=== PATIENT | male | born 2005 | race Caucasian/White ===

== ENCOUNTER 2023-01-05 20:26 | Emergency (ER) | payer MEDICAID ==
[~2023-01-05] VITALS: Ht 170.2 cm; Wt 69.0 kg
[2023-01-05] MEDS ORDERED: TOPUD PO (21:25)
[2023-01-05] MEDS ORDERED: IBUP-2028 MT (21:25)
[2023-01-05 21:30] VITALS: BP 116/78
[2023-01-05] MEDS ORDERED: ACETAMINOPHEN 325MG TABLET PO ONE (21:30)
[2023-01-05] MEDS ORDERED: IBUPROFEN 400MG TABLET PO ONE (21:30)
== END 2023-01-05 22:00 | disposition home or self-care (01) ==
LOC: ER 20:26
DX: S06.0X0A Concussion without loss of consciousness, initial encounter (principal); Y93.66 Activity, soccer; Y92.89 Other specified places as the place of occurrence of the external cause; Y99.8 Other external cause status
CPT/HCPCS: 99284